=== PATIENT | female | born 1950 | race Caucasian/White ===

== ENCOUNTER → 2016-11-18 | Outpatient (CLI) | payer OTHER | LOC: FIMAGING 08:54 | DX: Z12.31 Encounter for screening mammogram for malignant neoplasm of breast (principal) | CPT/HCPCS: G0202 ==

== ENCOUNTER → 2017-03-19 | Outpatient (CLI) | payer OTHER | LOC: FIMAGING 12:54 | PROVIDERS: ATTEND Internal Medicine Endocrinology, Diabetes & Metabolism | DX: Z13.820 Encounter for screening for osteoporosis (principal); M81.0 Age-related osteoporosis without current pathological fracture; Z78.0 Asymptomatic menopausal state; Z79.899 Other long term (current) drug therapy ==

== ENCOUNTER → 2017-11-20 | Outpatient (CLI) | payer OTHER | LOC: FIMAGING 11:02 | PROVIDERS: ATTEND Physician Assistant | DX: Z12.31 Encounter for screening mammogram for malignant neoplasm of breast (principal) ==

== ENCOUNTER 2017-12-08 08:58 | Day surgery (SDC) | payer OTHER ==
[2017-12-08] MEDS ORDERED: LIDOCAINE 1% 2 ML INJ ID PRN (09:12)
[2017-12-08] MEDS ORDERED: LR 1,000 ML IV ONE (09:12)
--- NOTE | 2017-12-08 09:37 | PDANEPAE ---
ANE History of Present Illness 67 year old woman for colonoscopy. Hx of htn. ANE Past Medical History - Cardiovascular History Hx Hypertension: Yes Hx Arrhythmias: No Hx Chest Pain: No Hx Coronary Artery / Peripheral Vascular Disease: No Hx CHF / Valvular Disease: No Hx Palpitations: No Cardiovascular History Comment: OCCASIONALLLY HEART BEATS RAPID. ELEVATED LIPIDS - Pulmonary History Hx COPD: No Hx Asthma/Reactive Airway Disease: No Hx Recent Upper Respiratory Infection: No Hx Oxygen in Use at Home: No Hx Sleep Apnea: No Sleep Apnea Screening Result - Last Documented: Negative - Neurologic History Hx Cerebrovascular Accident: No Hx Seizures: No Hx Dementia: No - Endocrine History Hx Diabetes: No Endocrine History Comment: HYPOTHYROID - Renal History Hx Renal Disorders: No - Liver History Hx Hepatic Disorders: No - Neurological & Psychiatric Hx Hx Neurological and Psychiatric Disorders: No - Cancer History Hx Cancer: No - Congenital Disorder History Hx Congenital Disorders: No - GI History Hx Gastrointestinal Disorders: Yes Gastrointestinal History Comment: HX OF POLYPS. REFLUX - Other Health History Other Health History: OSTEOPOROSIS - Chronic Pain History Chronic Pain: No - Surgical History Prior Surgeries: WILLIAN CATARACTS. COLONOSCOPY X2. TONSILLECTOMY. TAB ANE Review of Systems Review of Systems: - Exercise capacity METS (RN): 4 METS ANE Patient History - Allergies Allergies/Adverse Reactions: Sulfa (Sulfonamide Antibiotics) Allergy (Verified 11/13/17 11:23) Anaphylaxis - Home Medications Home Medications: Levothyroxine DAILY06 10/14/14 [Last Taken 12/08/17 06:30] Lisinopril DAILY06 10/14/14 [Last Taken 12/08/17 06:30] Atorvastatin Calcium DAILY06 11/13/17 [Last Taken 12/06/17] Fosamax 70 MG (*) ONCE 11/13/17 [Last Taken 12/01/17] Herbals/Supplements -Info Only DAILY 11/13/17 [Last Taken 12/01/17] - NPO status NPO Since - Liquids (Date): 12/08/17 NPO Since - Liquids (Time): 07:00 NPO Since - Solids (Date): 12/06/17 NPO Since - Solids (Time): 19:00 - Smoking Hx Smoking Status: Never smoked ANE Labs/Vital Signs - Vital Signs Blood Pressure: 138/80 Heart Rate: 69 Respiratory Rate: 14 O2 Sat (%): 95 Height: 147.32 cm Weight: 49.895 kg ANE Physical Exam - Airway Neck exam: FROM Mallampati Score: Class 2 Mouth exam: normal dental/mouth exam - Pulmonary Pulmonary: no respiratory distress - Cardiovascular Cardiovascular: regular rate and rhythym - ASA Status ASA Status: II ANE Anesthesia Plan Anesthesia Plan: GA with mask, MAC
--- NOTE | 2017-12-08 09:38 | PDGENHP ---
History and Physical - Chief Complaint surveillance of colon polyps - History of Present Illness Piecemeal resection of polyp in cecum 12 months ago. Follow-up exam today. History Information - Allergies/Home Medication List Allergies/Adverse Reactions: Sulfa (Sulfonamide Antibiotics) Allergy (Verified 11/13/17 11:23) Anaphylaxis Home Medications: Levothyroxine DAILY06 10/14/14 [Last Taken 12/08/17 06:30] Lisinopril DAILY06 10/14/14 [Last Taken 12/08/17 06:30] Atorvastatin Calcium DAILY06 11/13/17 [Last Taken 12/06/17] Fosamax 70 MG (*) ONCE 11/13/17 [Last Taken 12/01/17] Herbals/Supplements -Info Only DAILY 11/13/17 [Last Taken 12/01/17] I have personally reviewed and updated: family history, medical history, social history, surgical history - Past Medical History hypertension, hyperlipidemia - Family History Negative for: cancer - Social History Smoking Status: Never smoked Review of Systems Review of Systems: ROS: 10pt was reviewed & negative except for what was stated in HPI & below Physical Exam Physical Exam: Temp Pulse Resp BP Pulse Ox 36.3 C 69 14 138/80 H 95 12/08/17 09:33 12/08/17 09:33 12/08/17 09:33 12/08/17 09:33 12/08/17 09:33 Constitutional: no apparent distress Eyes: PERRL Ears, Nose, Mouth, Throat: moist mucous membranes Cardiovascular: regular rate and rhythym Respiratory: no respiratory distress Gastrointestinal: normoactive bowel sounds Skin: warm Neurologic: AAOx3 Psychiatric: interacting appropriately Assessment & Plan Assessment: hx polyps Plan: colonoscopy
[2017-12-08] MEDS ORDERED: MIDAZOLAM 2 MG/2 ML VIAL ONE (09:41)
[2017-12-08] MEDS ORDERED: PROPOFOL 200 MG/20 ML VIAL ONE ×2 (09:43→10:00)
[2017-12-08] MEDS ORDERED: fentaNYL 100 MCG/2 ML INJ IVP PRN (10:13)
[2017-12-08] MEDS ORDERED: ALBUTEROL 3 ML DEYVIAL IH PRN (10:13)
[2017-12-08] MEDS ORDERED: NALOXONE HCL 0.4 MG/ML INJ IVP PRN (10:13)
--- NOTE | 2017-12-08 10:13 | POSTANESTH ---
Post Anesthetic Evaluation Cardiovascular Status: Normal, Stable Respiratory Status: Normal, Stable Level of Consciousness/Mental Status: Can Participate in Eval Pain Control: Adequate, Prn Tx Ordered Nausea/Vomiting Control: Adequate, Prn Tx Ordered Complications Possibly Related to Anesthesia: None Noted
--- NOTE | 2017-12-08 10:13 | GIREPORT ---
Former[facility] Surgical Services - Endoscopy Department Patient Name: Enriqueta Lipscomb Procedure Date: 12/08/2017 9:35 AM Patient Type: Outpatient Attending MD/ ER Physician: Nancy Meredith MD Procedure: Colonoscopy Indications: High risk colon cancer surveillance: Personal history of colonic polyps Providers: Nancy Meredith MD Medicines: Sedation Administered by an Anesthesia Professional Complications: No immediate complications. Description of Procedure: After obtaining informed consent, the scope was passed under direct vis ion. Throughout the procedure, the patient's blood pressure, pulse, and oxyg en saturations were monitored continuously. The Colonoscope with irrigatio n channel was introduced through the anus and advanced to the cecum, identified by appendiceal orifice and ileocecal valve. The colonoscopy was performed without difficulty. The patient tolerated the procedure well. The quality of the bowel preparation was good. The ileocecal valve, appendi ceal orifice, and rectum were photographed. Findings: In the area of prior polypectomy there was some congested mucosa. Likel y normal post-polypectomy healing. But, hot snare removal of the mucosa w as done to be sure no residual polyp left behind. The exam was otherwise without abnormality. Estimated Blood Loss: Estimated blood loss: none. Post Op Diagnosis: - Congestion and post-polypectomy site. Removed with a hot snare. Resec ban and retrieved. - The examination was otherwise normal. Recommendation: - Written discharge instructions were provided to the patient. - The signs and symptoms of potential delayed complications were discus sed with the patient. - Patient has a contact number available for emergencies. - Return to normal activities tomorrow. - Resume previous diet. - Continue present medications. - Await pathology results. - Repeat colonoscopy for surveillance based on pathology results. Attending Participation: I personally performed the entire procedure. Nancy Meredith MD Nancy Meredith MD 12/08/2017 10:13:01 AM This report has been signed electronicallyNancy Meredith MD Number of Addenda: 0 Note Initiated On: 12/08/2017 9:35 AM Total Procedure Duration Time 0 hours 19 minutes 12 seconds [email or web address]
[2017-12-08 11:44] VITALS: BP 123/73
== END 2017-12-08 11:45 | disposition home or self-care (01) ==
LOC: FSGY 08:58
PROVIDERS: ATTEND Internal Medicine Gastroenterology
PROC: 0DBH8ZX Excision of Cecum, Via Natural or Artificial Opening Endoscopic, Diagnostic (ICD-10-PCS; principal; 2017-12-08 10:15)
DX: Z12.11 Encounter for screening for malignant neoplasm of colon (principal); Z86.010 Personal history of colon polyps
CPT/HCPCS: J2250; J2704

== ENCOUNTER → 2018-11-23 | Outpatient (CLI) | payer OTHER | LOC: FIMAGING 10:28 | PROVIDERS: ATTEND Physician Assistant | DX: Z12.31 Encounter for screening mammogram for malignant neoplasm of breast (principal) ==